=== PATIENT | female | born 1960 | race Caucasian/White ===

== ENCOUNTER → 2017-04-06 | Outpatient (CLI) | payer OTHER | END | disposition home or self-care (01) | LOC: HKI 13:14 | DX: Z47.1 Aftercare following joint replacement surgery (principal); Z96.651 Presence of right artificial knee joint | CPT/HCPCS: 73560; 73560-RT ==

== ENCOUNTER → 2017-04-20 | Outpatient (CLI) | payer OTHER | END | disposition home or self-care (01) | LOC: HKI 13:20 | DX: Z09 Encounter for follow-up examination after completed treatment for conditions other than malignant neoplasm (principal); L03.115 Cellulitis of right lower limb; Z96.651 Presence of right artificial knee joint | CPT/HCPCS: 73560; 73560-RT ==

== ENCOUNTER → 2017-05-11 | Outpatient (CLI) | payer OTHER | END | disposition home or self-care (01) | LOC: HKI 11:16 | DX: T81.4XXD Infection following a procedure, subsequent encounter (principal); L03.115 Cellulitis of right lower limb; Y83.8 Other surgical procedures as the cause of abnormal reaction of the patient, or of later complication, without mention of misadventure at the time of the procedure ==

== ENCOUNTER → 2017-05-25 | Outpatient (CLI) | payer OTHER | END | disposition home or self-care (01) | LOC: HKI 13:34 | DX: Z09 Encounter for follow-up examination after completed treatment for conditions other than malignant neoplasm (principal); Z96.651 Presence of right artificial knee joint | CPT/HCPCS: 73560; 73560-RT ==